=== PATIENT | female | born 1955 | race American Indian/Alaskan Native ===

== ENCOUNTER 2019-12-03 10:26 | Emergency (ER) | payer SELFPAY ==
[2019-12-03] MEDS ORDERED: ASPIRIN 325 MG TAB PO ONE (10:35)
--- NOTE | 2019-12-03 11:22 | XRay Report ---
CHEST 2 VIEWS INDICATION: Chest Pain. COMPARISON: None. FINDINGS: Support devices: None. Heart: Within normal limits. Lungs/Pleura: No acute air space or interstitial disease. No significant pleural effusion. IMPRESSION: No acute findings. Signer Name: Claudy Hawthorne MD Signed: 12/03/2019 11:17 AM Workstation Name: [id number]
--- NOTE | 2019-12-03 12:19 | Emergency Department Report ---
ED General Adult HPI - General Chief complaint: Dyspnea/Respdistress Stated complaint: DIZZY, LIGHTHEADED Time Seen by Provider: 12/03/19 12:16 Source: patient, EMS Mode of arrival: Ambulatory Limitations: No Limitations - History of Present Illness Initial comments: Mrs. Olvera is a 64-year-old female with history of hypertension, CAD who presents with stress. 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 She called 911 because she did not feel as if her son was breathing correctly. She became upset. She felt panicked. She just wanted to make sure that she was okay. She denies any chest pain. She denies shortness of breath. She denies syncope. She was concerned about her blood pressure being up. -: Sudden, This afternoon Consistency: now resolved Improves with: none Worsens with: none Associated Symptoms: denies other symptoms - Related Data Allergies Allergy/AdvReac Type Severity Reaction Status Date / Time morphine Allergy Vomiting Verified 12/03/19 10:30 ED Review of Systems ROS: Stated complaint: DIZZY, LIGHTHEADED Other details as noted in HPI Comment: All other systems reviewed and negative Constitutional: denies: fever, malaise Respiratory: denies: cough, shortness of breath Cardiovascular: denies: chest pain, palpitations ED Past Medical Hx - Past Medical History Previous Medical History?: Yes Hx Hypertension: Yes Additional medical history: CAD - Surgical History Past Surgical History?: Yes Hx Coronary Stent: Yes - Social History Smoking Status: Former Smoker Substance Use Type: Prescribed ED Physical Exam - General Limitations: No Limitations General appearance: alert, in no apparent distress - Head Head exam: Present: atraumatic, normocephalic - Eye Eye exam: Present: normal appearance - ENT ENT exam: Present: mucous membranes moist - Neck Neck exam: Present: normal inspection, full ROM - Respiratory Respiratory exam: Present: normal lung sounds bilaterally. Absent: respiratory distress, wheezes, rales, rhonchi - Cardiovascular Cardiovascular Exam: Present: regular rate, normal rhythm, normal heart sounds. Absent: systolic murmur, diastolic murmur, rubs, gallop - GI/Abdominal GI/Abdominal exam: Present: soft, normal bowel sounds. Absent: distended, tenderness, guarding, rebound - Extremities Exam Extremities exam: Present: normal inspection - Neurological Exam Neurological exam: Present: alert, oriented X3 - Psychiatric Psychiatric exam: Present: normal affect, normal mood - Skin Skin exam: Present: warm, dry, intact, normal color. Absent: rash ED Course Vital Signs 12/03/19 10:30 Temperature 97.9 F Pulse Rate 91 H Respiratory 18 Rate Blood Pressure 141/85 O2 Sat by Pulse 99 Oximetry ED Medical Decision Making - EKG Data EKG shows normal: sinus rhythm, axis, intervals, QRS complexes, ST-T waves Rate: normal - EKG Data Interpretation: normal EKG - Medical Decision Making stress reaction due to son's recent illness EKG normal. Patient is symptom. Critical care attestation.: If time is entered above; I have spent that time in minutes in the direct care of this critically ill patient, excluding procedure time. ED Disposition Clinical Impression: Stress reaction, acute Disposition: DC-01 TO HOME OR SELFCARE Is pt being admited?: No Does the pt Need Aspirin: No Condition: Stable
[2019-12-03 12:27] VITALS: BP 133/86
[2019-12-03 12:28] LABS: Basophils % (Auto) 0.5 % (0.0-1.8); Eosinophils # (Auto) 0.1 K/mm3 (0.0-0.4); Eosinophils % (Auto) 1.4 % (0.0-4.3); Hematocrit 42.2 % (30.3-42.9); Hemoglobin 14.1 gm/dl (10.1-14.3); Lymphocytes # (Auto) 1.9 K/mm3 (1.2-5.4); Lymphocytes % (Auto) 30.2 % (13.4-35.0); Mean Corpuscular HGB Conc 33 % (30-34); Mean Corpuscular Volume 90 fl (79-97); Monocytes # (Auto) 0.4 K/mm3 (0.0-0.8); Monocytes % (Auto) 6.7 % (0.0-7.3); Platelet Count 376 K/mm3 (140-440); Red Blood Count 4.72 M/mm3 (3.65-5.03); Red Cell Distribution Width 14.3 % (13.2-15.2)
[2019-12-03 12:51] LABS: BUN/Creatinine Ratio 27; Blood Urea Nitrogen 19 mg/dL (7-17); Calcium 10.3 mg/dL (8.4-10.2); Hemolysis Index 5
== END 2019-12-03 13:50 | disposition home or self-care (01) ==
LOC: ED 10:26
DX: F43.0 Acute stress reaction (principal); I10 Essential (primary) hypertension; Z98.890 Other specified postprocedural states; Z87.891 Personal history of nicotine dependence; Z88.6 Allergy status to analgesic agent
CPT/HCPCS: 36415; 71045; 80048; 84484; 85025; 93005; 93010

== ENCOUNTER 2020-02-08 15:34 | Emergency (ER) | payer SELFPAY ==
--- NOTE | 2020-02-08 15:55 | Event Note ---
ED Screening Note ED Screening Note: 65-year-old [place] female with past medical history of CAD, hypertension, status post 3 stent placements presents emergency department complaining of sudden onset of left-sided chest ache associated with presyncope and and nausea while she was cooking dinner today. No palliative or provocative factors noted. Reports no fevers, chills, sweats no hemoptysis no hematemesis no hematochezia no known contact with the coronavirus Plan we will do a cardiovascular evaluation including EKG chest x-ray and lab oratory data as well as reevaluate and treat her nausea when she obtains a room in the emergency department This initial assessment/diagnostic orders/clinical plan/treatment(s) is/are subject to change based on patients health status, clinical progression and re- assessment by fellow clinical providers in the ED. Further treatment and workup at subsequent clinical providers discretion. Patient/guardian urged not to elope from the ED as their condition may be serious if not clinically assessed and managed. Initial orders include:
[2020-02-08] MEDS ORDERED: ONDANSETRON 4 MG ODT TAB PO STA (15:56)
[2020-02-08] MEDS ORDERED: ASPIRIN 325 MG TAB PO ONE (15:56)
--- NOTE | 2020-02-08 16:35 | Emergency Department Report ---
ED Abdominal Pain HPI - General Chief Complaint: Nausea/Vomiting/Diarrhea Stated Complaint: N/V PUI?: No Time Seen by Provider: 02/08/20 16:19 Source: patient Mode of arrival: Wheelchair Limitations: No Limitations - History of Present Illness Initial Comments: Patient is a 64-year-old -[place] female comes to the ER complaining of dizziness. She states that after she cooked a meal and sat down to eat that she felt dizzy. She states then that she passed out on the bed. However, when probed further she did not pass out she laid down. She called EMS to bring her to the hospital. Per secondary report patient vomited x1 in the ambulance. She arrives to [facility] refusing to get out of the wheelchair stating that she is still dizzy. However, she did go to radiology and stand for her chest x-ray without difficulty. Patient denies any chest pain or shortness of breath. She denies any fever or chills. Vital signs as recorded manually by the RN are temperature of 98.3, blood pressure 136/76, room air sat 99%, respirations 18/min and heart rate 55 bpm. Patient states she takes cholesterol medicine she cannot tell me the names of them. She also states she takes vitamin D, aspirin and blood pressure medicines . She states that she cannot recall the name of her blood pressure medicines. Patient states that she has 3 coronary stents that were found as a sequela to an abnormal stress test. Her program manager transportation is at [facility]. Patient denies chest pain MD Complaint: abdominal pain -: Sudden Worsens With: eating Associated Symptoms: nausea, vomiting, other (Presyncope). denies: diarrhea, fever, chills, constipation, hematemesis, hematochezia, melena, hematuria, anorexia, syncope - Related Data Previous Rx's Medication Instructions Recorded Last Taken Type Ondansetron [Zofran Odt] 4 mg PO Q8HR PRN #10 tab.rapdis 02/08/20 Unknown Rx Allergies Allergy/AdvReac Type Severity Reaction Status Date / Time morphine Allergy Vomiting Verified 12/03/19 12:18 ED Review of Systems ROS: Stated complaint: N/V Other details as noted in HPI Comment: All other systems reviewed and negative ED Past Medical Hx - Past Medical History Previous Medical History?: Yes Hx Hypertension: Yes Hx CVA: No Hx Heart Attack/AMI: No Hx Congestive Heart Failure: No Hx Diabetes: No Hx Deep Vein Thrombosis: No Hx Pulmonary Embolism: No Hx GERD: No Hx Liver Disease: No Hx Renal Disease: No Hx of Cancer: No Hx Sickle Cell Disease: No Hx Arthritis: No Hx Headaches / Migraines: No Hx Seizures: No Hx Kidney Stones: No Hx Psychiatric Treatment: No Hx Asthma: No Hx COPD: No Hx Tuberculosis: No Hx Dementia: No Hx HIV: No Additional medical history: CAD- STRESS TEST ABNORMAL AND GOT 3 STENTS - Surgical History Past Surgical History?: Yes Hx Coronary Stent: Yes Additional Surgical History: Tubal ligation - Family History Family history: no significant - Social History Smoking Status: Former Smoker Substance Use Type: None - Medications Home Medications: Home Medications Medication Instructions Recorded Confirmed Last Taken Type Ondansetron [Zofran Odt] 4 mg PO Q8HR PRN #10 tab.rapdis 02/08/20 Unknown Rx ED Physical Exam - General Limitations: No Limitations General appearance: alert, in no apparent distress - Head Head exam: Present: atraumatic, normocephalic - Eye Eye exam: Present: normal appearance - ENT ENT exam: Present: mucous membranes moist - Neck Neck exam: Present: normal inspection - Respiratory Respiratory exam: Present: normal lung sounds bilaterally. Absent: respiratory distress - Cardiovascular Cardiovascular Exam: Present: regular rate, normal rhythm. Absent: systolic murmur, diastolic murmur, rubs, gallop - GI/Abdominal GI/Abdominal exam: Present: soft, normal bowel sounds - Extremities Exam Extremities exam: Present: normal inspection - Back Exam Back exam: Present: normal inspection - Neurological Exam Neurological exam: Present: alert, oriented X3 - Psychiatric Psychiatric exam: Present: normal affect, normal mood - Skin Skin exam: Present: warm, dry, intact, normal color. Absent: rash ED Course Vital Signs 02/08/20 16:28 Respiratory 18 Rate - Reevaluation(s) Reevaluation #1: 02/08/20 18:02 ON REEXAM PT FEELING BETTER NO N/V VSS ED Medical Decision Making - Lab Data Result diagrams: 02/08/20 16:39 02/08/20 16:39 - EKG Data -: EKG Interpreted by Me EKG shows normal: sinus rhythm Rate: bradycardia - EKG Data When compared to previous EKG there are: no significant change Interpretation: no acute changes - Radiology Data Radiology results: report reviewed, image reviewed NAP - Medical Decision Making Labs 02/08/20 02/08/20 02/08/20 16:39 16:39 16:51 WBC 10.7 RBC 4.60 Hgb 13.7 Hct 41.4 MCV 90 MCH 30 MCHC 33 RDW 14.1 Plt Count 271 Lymph % (Auto) 15.9 [place] % (Auto) 5.0 Eos % (Auto) 0.8 Baso % (Auto) 0.4 Lymph # 1.7 [place] # 0.5 Eos # 0.1 Baso # 0.0 Seg Neutrophils % 77.9 H Seg Neutrophils # 8.4 H Sodium 143 Potassium 3.6 Chloride 102.7 Carbon Dioxide 27 Anion Gap 17 BUN 27 H Creatinine 0.7 Estimated GFR > 60 BUN/Creatinine Ratio 39 Glucose 136 H Calcium 10.0 Total Bilirubin 0.20 AST 22 ALT 23 Alkaline Phosphatase 101 Troponin T < 0.010 Total Protein 7.8 Albumin 4.6 Albumin/Globulin Ratio 1.4 Lipase 80 H TSH 3.090 Urine Color Urine Turbidity Urine pH Ur Specific [place] Urine Protein Urine Glucose (UA) Urine Ketones Urine Blood Urine Nitrite Urine Bilirubin Urine Urobilinogen Ur Leukocyte Esterase Urine WBC (Auto) Urine RBC (Auto) U Epithel Cells (Auto) Urine Mucus 02/08/20 17:03 WBC RBC Hgb Hct MCV MCH MCHC RDW Plt Count Lymph % (Auto) [place] % (Auto) Eos % (Auto) Baso % (Auto) Lymph # [place] # Eos # Baso # Seg Neutrophils % Seg Neutrophils # Sodium Potassium Chloride Carbon Dioxide Anion Gap BUN Creatinine Estimated GFR BUN/Creatinine Ratio Glucose Calcium Total Bilirubin AST ALT Alkaline Phosphatase Troponin T Total Protein Albumin Albumin/Globulin Ratio Lipase TSH Urine Color Yellow Urine Turbidity Clear Urine pH 5.0 Ur Specific [place] 1.024 Urine Protein 30 mg/dl Urine Glucose (UA) Neg Urine Ketones Neg Urine Blood Sm Urine Nitrite Neg Urine Bilirubin Neg Urine Urobilinogen 2.0 Ur Leukocyte Esterase Tr Urine WBC (Auto) 8.0 H Urine RBC (Auto) 5.0 U Epithel Cells (Auto) 1.0 Urine Mucus 2+ Vital Signs 02/08/20 16:28 Respiratory 18 Rate LABS NOTED HYDRATED WITH NS/ZOFRAN/ZOSYN IV X 1 UA NOTED XRAY NAP GIVEN INC LIPASE WILL SEND PT FOR CT SCAN TO RO OBSTRUCTING G. STONE. 1805 PT UPDATED ON PLAN OF CARE. SHE WILL HAVE CT TO RO OBSTRUCTION AND THEN DC HOME WITH GI FOLLOW UP WE HAVE DISCUSSED HER DIET IN RELATION TO HER G BLADDER. PT STATES SHE ATE 2 EGGS AND A BUNCH OF NUTS PRIOR TO THE N/V EPISODE HEMATOLOGY NURSE IN THE ER. SHE STATES SHE HAS BEEN HAVING R SHOULDER PAIN RECENTLY. - Differential Diagnosis RO ACS/CHOLEYS/GASTROENTERITIS/UTI Critical care attestation.: If time is entered above; I have spent that time in minutes in the direct care of this critically ill patient, excluding procedure time. ED Disposition Clinical Impression: Abdominal pain Disposition: DC-01 TO HOME OR SELFCARE Is pt being admited?: No Does the pt Need Aspirin: No Condition: Stable Instructions: Cholecystitis (ED), Acute Nausea and Vomiting (ED) Additional Instructions: BLAND DIET Stay well-hydrated with water Follow-up with PCP AND/OR GI MD IN AM Continue your current home medications When you come to the hospital bring them with you ZOFRAN FOR NAUSEA Prescriptions: Ondansetron [Zofran Odt] 4 mg PO Q8HR PRN #10 tab.rapdis PRN Reason: Vomiting Referrals: NOELLE STERLING MD [Staff Physician] - 3-5 Days KALI JURADO MD [Staff Physician] - 3-5 Days ANA GOMES MD [Staff Physician] - 3-5 Days FÉLIX JOHNSON MD [Staff Physician] - 3-5 Days Time of Disposition: 16:51
--- NOTE | 2020-02-08 16:43 | XRay Report ---
CHEST 2 VIEWS INDICATION: Chest Pain. COMPARISON: 12/03/2019 FINDINGS: Support devices: None. Heart: Within normal limits. Lungs: No acute air space or interstitial disease. Pleura: No significant pleural effusion. No pneumothorax. Additional findings: None. IMPRESSION: 1. No acute findings. Signer Name: Phu Colvin MD Signed: 02/08/2020 4:38 PM Workstation Name: [id number]
[2020-02-08] MEDS ORDERED: SODIUM CHLORIDE 0.9% 1000 ML 1,000 ML IV ONE (16:45)
[2020-02-08 17:03] LABS: Basophils % (Auto) 0.4 % (0.0-1.8); Eosinophils # (Auto) 0.1 K/mm3 (0.0-0.4); Eosinophils % (Auto) 0.8 % (0.0-4.3); Hematocrit 41.4 % (30.3-42.9); Hemoglobin 13.7 gm/dl (10.1-14.3); Lymphocytes # (Auto) 1.7 K/mm3 (1.2-5.4); Lymphocytes % (Auto) 15.9 % (13.4-35.0); Mean Corpuscular HGB Conc 33 % (30-34); Mean Corpuscular Volume 90 fl (79-97); Monocytes # (Auto) 0.5 K/mm3 (0.0-0.8); Platelet Count 271 K/mm3 (140-440); Red Cell Distribution Width 14.1 % (13.2-15.2)
[2020-02-08 17:25] LABS: Alanine Aminotransferase 23 units/L (7-56); Albumin 4.6 g/dL (3.9-5); BUN/Creatinine Ratio 39; Blood Urea Nitrogen 27 mg/dL (7-17); Hemolysis Index 2
[2020-02-08 17:36] LABS: Bilirubin,Urine NEG (Negative); Blood,Urine SM (Negative); Color,Urine Yellow (Yellow); Mucus,Urine 2+ /HPF
[2020-02-08] MEDS ORDERED: PIPERACIL/TAZOBACTA 4.5/NS 100 4.5 GM/100 ML VIAL IV ONE (17:44)
[2020-02-08] MEDS ORDERED: ONDANSETRON 4 MG/2 ML INJ IV ONE (18:36)
[2020-02-08 19:27] VITALS: BP 145/73
--- NOTE | 2020-02-08 21:00 | Cat Scan Report ---
CT ABDOMEN AND PELVIS WITH CONTRAST INDICATION: ABDOMINAL PAIN, nausea CONTRAST: 100 cc Omnipaque 350 IV COMPARISON: None available. All CT scans at this location are performed using CT dose reduction for ALARA by means of automated e xposure control. FINDINGS: Lung bases appear clear of infiltrates. Small hiatal hernia is noted. I see no significant abnormalities of the gallbladder, bile ducts, pancreas, adrenals, or spleen. A few tiny probable cyst s are seen in the liver. In the extreme upper portion of the right lobe of the liver at the dome of t he diaphragm to 15 mm mixed density lesion is seen which is very likely a small lymphangioma. Both ki dneys show small cysts and probable cysts. No urinary obstructive changes are seen. No evidence of ed wel obstruction is noted. No inflammatory changes are seen. Appendix appears within normal limits. No free fluid is noted. No adnexal masses are seen. There may be small uterine leiomyomata. IMPRESSION: No acute abnormalities are seen Signer Name: Artis Mirza MD Signed: 02/08/2020 8:55 PM Workstation Name: [id number]
== END 2020-02-08 20:04 | disposition home or self-care (01) ==
LOC: ED 15:34
DX: R10.9 Unspecified abdominal pain (principal); R42 Dizziness and giddiness; R11.2 Nausea with vomiting, unspecified; I10 Essential (primary) hypertension; Z98.51 Tubal ligation status; Z87.891 Personal history of nicotine dependence; Z88.5 Allergy status to narcotic agent; Z79.899 Other long term (current) drug therapy
CPT/HCPCS: 36415; 71046; 74177; 80053; 81001; 83690; 84443; 84484; 85025; 93005; 96361; 96365; 96375; 99285; J2405; J2543; J7030; Q9967; Q0162